=== PATIENT | male | born 1945 | race African-American/Black ===

== ENCOUNTER 2018-01-24 03:53 | Inpatient (IN) | payer BC ==
[2018-01-24 04:26] LABS: ADD MAN DIFF? NO
[2018-01-24 04:31] LABS: ABNORMAL IP MESSAGE 1; BASOPHILS % 0.1 % (0.0-2.0); HEMATOCRIT 27.2 % (42.0-52.0); HEMOGLOBIN 9.3 g/dl (14.0-18.0); LYMPHOCYTES # 0.6 10^3/ul (0.8-2.9); LYMPHOCYTES % 3.9 % (15.0-51.0); MEAN CORPUSCULAR HEMOGLOBIN 32.2 pg (29.0-33.0); MEAN CORPUSCULAR HGB CONC 34.2 g/dl (32.0-37.0); MEAN CORPUSCULAR VOLUME 94.1 fl (82.0-101.0); MEAN PLATELET VOLUME 10.5 fl (7.4-10.4); MONOCYTE # 0.6 10^3/ul (0.3-0.9); MONOCYTES % 4.5 % (0.0-11.0); NEUTROPHIL # 12.8 10^3/ul (1.6-7.5); NEUTROPHILS % 89.7 % (39.0-77.0); PLATELET COUNT 259 10^3/UL (140-415); POSITIVE DIFF @See below; RED BLOOD COUNT 2.89 10^6/ul (4.70-6.10); RED CELL DISTRIBUTION WIDTH 15.9 % (11.5-14.5)
[2018-01-24 04:31] LABS: WHITE BLOOD COUNT 14.2 10^3/ul (4.8-10.8)
[2018-01-24 04:45] LABS: ADD UMIC YES; UR ASCORBIC ACID NEGATIVE (NEGATIVE); UR BILIRUBIN (Dip) NEGATIVE (NEGATIVE); UR BLOOD (Dip) 3+ mg/dL (NEGATIVE); UR CLARITY TURBID (CLEAR); UR COLOR AMBER (YELLOW); UR GLUCOSE (Dip) 2+ mg/dL (NEGATIVE); UR KETONES (Dip) NEGATIVE (NEGATIVE); UR LEUKOCYTE ESTERASE (Dip) NEGATIVE Leu/ul (NEGATIVE); UR NITRITE (Dip) NEGATIVE (NEGATIVE); UR SPECIFIC GRAVITY (Dip) 1.027 (1.003-1.030); UR TOTAL PROTEIN (Dip) 3+ mg/dl (NEGATIVE); UR UROBILINOGEN (Dip) NEGATIVE (NEGATIVE)
[2018-01-24 04:47] LABS: UR BACTERIA FEW /HPF (NONE SEEN); UR RBC > 182 /HPF (0-5); UR WBC > 182 /HPF (0-5)
[2018-01-24] MEDS: morphine 4 MG/ML VIAL IV (04:49)
[2018-01-24] MEDS: SOD CHLORIDE 0.9% 1,000 ML IV (04:49)
[2018-01-24] MEDS: ONDANSETRON 4 MG INJ IV (04:49)
[2018-01-24 04:51] LABS: ALANINE AMINOTRANSFERASE 7 IU/L (13-69); ALBUMIN 3.6 g/dl (3.3-4.9); ALBUMIN/GLOBULIN RATIO 1.33; ALKALINE PHOSPHATASE 107 IU/L (42-121); ANION GAP 19 (8-16); ASPARTATE AMINO TRANSFERASE 18 IU/L (15-46); BILIRUBIN,INDIRECT 0.3 mg/dl (0-1.1); BILIRUBIN,TOTAL 0.3 mg/dl (0.2-1.3); BLOOD UREA NITROGEN 74 mg/dl (7-20); CALCIUM 8.3 mg/dl (8.4-10.2); CARBON DIOXIDE 22 mmol/L (21-31); CHLORIDE 100 mmol/L (97-110); CREATININE 2.55 mg/dl (0.61-1.24); GLUCOSE 339 mg/dl (70-220); LIPASE 39 U/L (23-300); POTASSIUM 5.5 mmol/L (3.5-5.1); SODIUM 135 mmol/L (135-144); TOTAL PROTEIN 6.3 g/dl (6.1-8.1)
[2018-01-24] MEDS: CEFTRIAXONE 1 GM/50 ML (PMX) 50 ML IVPB (06:09)
[2018-01-24] MEDS ORDERED: ALBUTEROL/IPRATROPIUM (NEB) 3 ML AMP HHN (08:30)
[2018-01-24] MEDS ORDERED: HYDROmorphONE 0.5 MG/0.5 ML SYG IV (08:30)
[2018-01-24] MEDS ORDERED: NACL 0.9% 3 ML SYG IV (08:30)
[2018-01-24] MEDS ORDERED: ONDANSETRON 4 MG INJ IV (08:30)
[2018-01-24] MEDS ORDERED: FINASTERIDE 5 MG TAB PO (09:00)
[2018-01-24] MEDS: morphine 2 MG INJ IV ×2 (09:53→20:13)
[2018-01-24 10:56] LABS: ADD MAN DIFF? NO
[2018-01-24 11:11] LABS: WHITE BLOOD COUNT 15.2 10^3/ul (4.8-10.8)
[2018-01-24 11:11] LABS: ABNORMAL IP MESSAGE 1; BASOPHILS % 0.1 % (0.0-2.0); HEMATOCRIT 22.6 % (42.0-52.0); HEMOGLOBIN 7.7 g/dl (14.0-18.0); LYMPHOCYTES # 0.6 10^3/ul (0.8-2.9); LYMPHOCYTES % 3.8 % (15.0-51.0); MEAN CORPUSCULAR HEMOGLOBIN 32.2 pg (29.0-33.0); MEAN CORPUSCULAR HGB CONC 34.1 g/dl (32.0-37.0); MEAN CORPUSCULAR VOLUME 94.6 fl (82.0-101.0); MEAN PLATELET VOLUME 10.2 fl (7.4-10.4); MONOCYTES % 6.3 % (0.0-11.0); NEUTROPHIL # 13.1 10^3/ul (1.6-7.5); NEUTROPHILS % 86.6 % (39.0-77.0); PLATELET COUNT 207 10^3/UL (140-415); POSITIVE DIFF @See below; RED BLOOD COUNT 2.39 10^6/ul (4.70-6.10)
[2018-01-24 11:28] LABS: ALANINE AMINOTRANSFERASE 11 IU/L (13-69); ALBUMIN/GLOBULIN RATIO 1.25; ALKALINE PHOSPHATASE 90 IU/L (42-121); ANION GAP 19 (8-16); ASPARTATE AMINO TRANSFERASE 13 IU/L (15-46); BILIRUBIN,INDIRECT 0.2 mg/dl (0-1.1); BILIRUBIN,TOTAL 0.2 mg/dl (0.2-1.3); BLOOD UREA NITROGEN 76 mg/dl (7-20); CARBON DIOXIDE 20 mmol/L (21-31); CHLORIDE 103 mmol/L (97-110); CREATININE 2.65 mg/dl (0.61-1.24); GLUCOSE 311 mg/dl (70-220); POTASSIUM 5.6 mmol/L (3.5-5.1); SODIUM 136 mmol/L (135-144); TOTAL PROTEIN 5.4 g/dl (6.1-8.1)
[2018-01-24] MEDS: SOD CHLORIDE 0.9% 250 ML IV* (14:18)
[2018-01-24] MEDS: DEXTROSE 5%-0.45% NACL 1,000 ML IV ×2 (14:45→14:57)
[2018-01-24 16:35] LABS: IMMEDIATE SPIN CROSSMATCH 1 2
[2018-01-24] MEDS ORDERED: CEFTRIAXONE 1 GM/50 ML (PMX) 50 ML IVPB (21:00)
== END 2018-01-24 20:41 | disposition short-term general hospital (02) | DRG 699 ==
LOC: E/R 03:53 → MS1 06:00
PROC: 30233N1 Transfusion of Nonautologous Red Blood Cells into Peripheral Vein, Percutaneous Approach (ICD-10-PCS; principal; 2018-01-24)
DX: T83.098A Other mechanical complication of other urinary catheter, initial encounter (principal); N39.0 Urinary tract infection, site not specified; Y82.8 Other medical devices associated with adverse incidents; C61 Malignant neoplasm of prostate; D64.9 Anemia, unspecified; Y92.009 Unspecified place in unspecified non-institutional (private) residence as the place of occurrence of the external cause
CPT/HCPCS: 36415; 36430; 80053; 81001; 83690; 85025; 86850; 86900; 86901; 86920; 87086; 96374; 96375; 96376; 99285-25